=== PATIENT | male | born 1995 | race Caucasian/White ===

== ENCOUNTER 2016-05-27 10:37 | Emergency (ER) | payer BC ==
[2016-05-27 10:54] VITALS: BP 146/79
[2016-05-27] MEDS ORDERED: Albuterol 2.5 MG/3 ML NEB.SOL* (0.083%) INH ONE (11:00)
--- NOTE | 2016-05-27 11:05 | UC ---
Asthma HPI - HPI Summary HPI Summary: patient has history of asthma, ran out of his inhaler, has a chest cold and is SOB and has increased cough the past few days. no fever, no sore throat, no sinus congestion. - History of Current Complaint Chief Complaint: UCGeneralIllness Stated Complaint: COUGH,CONGEST,ASTHMA Time Seen by Provider: 05/27/16 10:55 Hx Obtained From: Patient Onset/Duration: Sudden Onset, Lasting Days Timing: Constant Initial Severity: Mild Current Severity: Moderate Pain Intensity: 3 Pain Scale Used: 0-10 Numeric Location/Character: Cough (Nonproductive) Aggravating: Exertion Alleviating: Nothing Associated Signs and Symptoms: Positive: URI, Shortness of Breath - Risk Factors Status Asthmaticus Risk Factors: Negative - Allergy/Home Medications Allergies/Adverse Reactions: Allergies Allergy/AdvReac Type Severity Reaction Status Date / Time Penicillins Allergy Rash Verified 05/21/15 14:13 Home Medications: Home Medications Ibuprofen TAB* [Advil TAB*] 1 tab PO PRN 05/27/16 [History] Pseudoephedrine-Dm [Cough Syrup D 60-30 mg/15Ml] 05/27/16 [History Confirmed ] PMH/Surg Hx/FS Hx/Imm Hx Previously Healthy: Yes Endocrine History Of: Denies: Diabetes Cardiovascular History Of: Denies: Hypertension Respiratory History Of: Reports: Asthma GI/ History Of: Denies: Urosepsis Psychological History Of: Denies: Post Traumatic Stress Disorder Cancer History Of: Denies: Lung Cancer Other History Of: Negative For: HIV - Surgical History Surgical History: Yes Surgery Procedure, Year, and Place: T&A - Family History Known Family History: Positive: Hypertension, Diabetes - Social History Alcohol Use: Rare Substance Use Type: None Smoking Status (MU): Never Smoked Tobacco Type: Cigarettes Length of Time of Smoking/Using Tobacco: 1-2 YRS Have You Smoked in the Last Year: Yes Review of Systems Constitutional: Negative Skin: Negative Eyes: Negative ENT: Negative Respiratory: Shortness Of Breath, Cough Cardiovascular: Negative Gastrointestinal: Negative Genitourinary: Negative Motor: Negative Neurovascular: Negative Musculoskeletal: Negative Neurological: Negative Psychological: Negative All Other Systems Reviewed And Are Negative: Yes Physical Exam Triage Information Reviewed: Yes Appearance: No Pain Distress, Well-Nourished, Ill-Appearing Vital Signs: Initial Vital Signs Temp 98.0 F 01/17/17 10:51 Pulse 66 05/27/16 10:51 Resp 16 05/27/16 10:51 BP 146/79 05/27/16 10:51 Pulse Ox 98 05/27/16 10:51 Vital Signs Reviewed: Yes Eye Exam: Normal Eyes: Positive: Conjunctiva Clear ENT Exam: Normal ENT: Positive: Hearing grossly normal, Pharynx normal, TMs normal Dental Exam: Normal Neck exam: Normal Neck: Positive: Supple, Nontender, No Lymphadenopathy Respiratory Exam: Normal Respiratory: Positive: Chest non-tender, Lungs clear, Normal breath sounds Cardiovascular Exam: Normal Cardiovascular: Positive: RRR, No Murmur, Pulses Normal Abdominal Exam: Normal Abdomen Description: Positive: Nontender, No Organomegaly, Soft Bowel Sounds: Positive: Present Musculoskeletal Exam: Normal Musculoskeletal: Positive: Strength Intact, ROM Intact, No Edema Neurological Exam: Normal Neurological: Positive: Alert, Muscle Tone Normal Psychological Exam: Normal Skin Exam: Normal Asthma Course/Dx - Course Course Of Treatment: hx obtained, exam performed, albuterol neb administered with improved respiration, prednisone and ventolin and albuterol neb prescribed , educated on triggers and avoidance of them. prescription for neb machine given - Differential Dx/Diagnosis Differential Diagnosis/HQI/PQRI: Acute Asthma, Bronchitis, Croup, Pneumonia, Reactive Airway Disease, SARS Provider Diagnoses: SOB, cough. Viral URI. hx of asthma Discharge - Discharge Plan Condition: Stable Disposition: HOME Prescriptions: Albuterol HFA INHALER* [Ventolin HFA Inhaler*] 1 - 2 puff INH Q4H PRN #1 mdi PRN Reason: Cough predniSONE TAB* [Deltasone TAB*] 40 mg PO DAILY #10 tab Additional Instructions: Take the medication as prescribed. I have included a script for the nebulizer machine. Follow up if symptoms return or are not well controlled. Keep increasing your fluid intake and get plenty of rest to let your body recover from the cold.
== END 2016-05-27 11:48 | disposition home or self-care (01) ==
LOC: UCEAST 10:37
DX: J06.9 Acute upper respiratory infection, unspecified (principal); B97.89 Other viral agents as the cause of diseases classified elsewhere; R05 Cough; Z72.0 Tobacco use; Z88.0 Allergy status to penicillin
CPT/HCPCS: 99212; G0463

== ENCOUNTER → 2016-08-29 10:37 | Emergency (ER) | payer SELFPAY ==
[~2016-08-29 10:37] MED LIST: PPD test dose* 5 TU/0.1 ML TEST (*USE PPD ORDER SET*) ONE
== END | disposition home or self-care (01) ==
LOC: UCCORT 10:37 → OHCORT 10:37
DX: Z11.1 Encounter for screening for respiratory tuberculosis (principal)

== ENCOUNTER 2019-05-05 13:34 | Emergency (ER) | payer OTHER ==
[2019-05-05 15:23] VITALS: BP 138/76
--- NOTE | 2019-05-05 15:25 | ED ---
Respiratory - HPI Summary HPI Summary: 24 yr old male with the complaint of coughing and left sided chest pain with coughing. The patient states people have pneumonia in his household. The patient has been coughing up yellow sputum. He states at times he has had some wheezing and shortness of breath. He has a history of asthma. The patient denies dizziness. - History of Current Complaint Chief Complaint: UCGeneralIllness Stated Complaint: COUGH,CONGESTION,WHEEZING Time Seen by Provider: 05/05/19 15:15 Pain Intensity: 0 - Allergy/Home Medications Allergies/Adverse Reactions: Allergies Allergy/AdvReac Type Severity Reaction Status Date / Time Penicillins Allergy Rash Verified 05/05/19 14:59 PMH/Surg Hx/FS Hx/Imm Hx Endocrine/Hematology History: Denies: Hx Diabetes Cardiovascular History: Denies: Hx Hypertension Respiratory History: Reports: Hx Asthma Denies: Hx Lung Cancer GI History: Denies: Hx Urosepsis - Surgical History Surgery Procedure, Year, and Place: T&A Infectious Disease History: No Infectious Disease History: Denies: Traveled Outside the in Last 30 Days - Family History Known Family History: Positive: Hypertension, Diabetes - Social History Alcohol Use: Rare Substance Use Type: Reports: None Smoking Status (MU): Never Smoked Tobacco Type: Cigarettes Length of Time of Smoking/Using Tobacco: 1-2 YRS Have You Smoked in the Last Year: Yes Review of Systems Constitutional: Negative Positive: Nasal Discharge Positive: Chest Pain - with coughing only Positive: Cough All Other Systems Reviewed And Are Negative: Yes Physical Exam Triage Information Reviewed: Yes Vital Signs On Initial Exam: Initial Vitals Temp Pulse Resp BP Pulse Ox 97.6 F 68 16 138/76 99 05/05/19 14:53 05/05/19 14:53 05/05/19 14:53 05/05/19 14:53 05/05/19 14:53 Vital Signs Reviewed: Yes Appearance: Positive: Well-Appearing, No Pain Distress Skin: Positive: Warm, Skin Color Reflects Adequate Perfusion Head/Face: Positive: Normal Head/Face Inspection Eyes: Positive: EOMI ENT: Positive: Normal ENT inspection Neck: Positive: Nontender Respiratory/Lung Sounds: Positive: Clear to Auscultation, Breath Sounds Present. Negative: Stridor, Wheezes Cardiovascular: Positive: RRR. Negative: Murmur Abdomen Description: Negative: Distended Musculoskeletal: Positive: Strength/ROM Intact Neurological: Positive: Sensory/Motor Intact, Alert, Oriented to Person Place, Time, CN Intact II-III, Normal Gait, Speech Normal Psychiatric: Positive: Normal Diagnostics - Vital Signs Vital Signs Temp Pulse Resp BP Pulse Ox 05/05/19 14:53 97.6 F 68 16 138/76 99 - Laboratory Lab Statement: Any lab studies that have been ordered have been reviewed, and results considered in the medical decision making process. - Radiology PA/LAT chest Radiology Interpretation Completed By: Radiologist - nad Disposition - Course Course Of Treatment: 24 yr old with neg chest xray. Will cover with zithromax for atypical organism, mycoplasma. Will put on prednisone and albuterol given history of asthma. - Diagnoses Provider Diagnoses: Asthma, Atypical pneumonia Discharge ED - Sign-Out/Discharge Documenting (check all that apply): Patient Departure All imaging exams completed and their final reports reviewed: Yes - Discharge Plan Condition: Good Disposition: HOME Prescriptions: Albuterol HFA INHALER* [Ventolin HFA Inhaler*] 1 - 2 puff INH Q6H PRN #1 mdi PRN Reason: Cough Azithromycin TAB* [Zithromax TAB (Z-MARIE) 250 mg #6 tabs] 2 tab PO .TODAY, THEN 1 DAILY #1 marie predniSONE TAB* [Deltasone 20 MG TAB*] 40 mg PO DAILY #10 tab Patient Education Materials: Pneumonia (ED), Wheezing (ED) Referrals: No Primary Care Phys,NOPCP [Primary Care Provider] - [facility] [place] [facility] REFERRAL [Outside] - 2 Days - Billing Disposition and Condition Condition: GOOD Disposition: Home
== END 2019-05-05 16:03 | disposition home or self-care (01) ==
LOC: UCCORT 13:34
DX: J18.9 Pneumonia, unspecified organism (principal); J45.909 Unspecified asthma, uncomplicated; Z88.0 Allergy status to penicillin
CPT/HCPCS: 71046; 99212; G0463

== ENCOUNTER 2019-06-25 12:10 | Emergency (ER) | payer OTHER ==
[2019-06-25 12:54] VITALS: BP 113/92
[2019-06-25] MEDS ORDERED: Tetan/Diph/Pertus SYR(Tdap)* 0.5 ML SYR(BOOSTRIX) use SYR contains LATEX IM ONE (13:00)
--- NOTE | 2019-06-25 13:09 | UC ---
Skin Complaint HPI - HPI Summary HPI Summary: cut finger x 1 hr ago laceration of the left 2nd finger with a utility knife, 5 out of 10 in severity , has been bleeding, worse by touch , better with pressure to stop the bleeding - History of Current Complaint Chief Complaint: UCLaceration Time Seen by Provider: 06/25/19 12:57 Stated Complaint: LACERATION LEFT INDEX FINGER Hx Obtained From: Patient Onset/Duration: Sudden Onset, Lasting Hours - 1, Still Present Timing: Constant Onset Severity: Moderate Current Severity: Moderate Pain Intensity: 7 Location: Hand (Left) - index finger Character: Pain Aggravating Factor(s): Touch Alleviating Factor(s): Other - pressure Associated Signs & Symptoms: Positive: Tenderness Related History: Trauma - cut with utility knife - Allergy/Home Medications Allergies/Adverse Reactions: Allergies Allergy/AdvReac Type Severity Reaction Status Date / Time Penicillins Allergy Rash Verified 06/25/19 12:46 Home Medications: Home Medications NK [No Home Medications Reported] 06/25/19 [History Confirmed 06/25/19] PMH/Surg Hx/FS Hx/Imm Hx Previously Healthy: Yes Other History Of: Negative For: HIV - Surgical History Surgical History: Yes Surgery Procedure, Year, and Place: T&A - Family History Known Family History: Positive: Hypertension, Diabetes - Social History Alcohol Use: Rare Substance Use Type: None Smoking Status (MU): Light Every Day Tobacco Smoker Type: Smokeless Tobacco Amount Used/How Often: 1 pinch chew on work days only Length of Time of Smoking/Using Tobacco: 1-2 YRS Have You Smoked in the Last Year: Yes - Immunization History Most Recent Tetanus Shot: Unknown Review of Systems All Other Systems Reviewed And Are Negative: Yes Is Patient Immunocompromised?: No Physical Exam Triage Information Reviewed: Yes Appearance: Well-Appearing, No Pain Distress, Well-Nourished Vital Signs: Initial Vital Signs Temp 98.7 F 06/25/19 12:45 Pulse 92 06/25/19 12:45 Resp 18 06/25/19 12:45 BP 113/92 06/25/19 12:45 Pulse Ox 99 06/25/19 12:45 Vital Signs Reviewed: Yes Eye Exam: Normal Eyes: Positive: Conjunctiva Clear ENT: Positive: Normal ENT inspection, Hearing grossly normal, Pharynx normal Neck: Positive: Supple, Nontender, No Lymphadenopathy Respiratory: Positive: Chest non-tender, Lungs clear, Normal breath sounds Cardiovascular: Positive: RRR, No Murmur, Pulses Normal Skin: Positive: Other - laceration left index finger , .5 cm , not very deep, minimal bleeding glue was used to repair the laceration Laceration Repair - Laceration Repair 1 Description: Linear Laceration Size After Repair: Length (cm) - .5 Modified For Repair: No Cleansing Completed Via Routine Prep: Yes Irrigation With Pressure Irrigation Device: Yes Closure Material: Skin Adhesive Course/Dx - Diagnoses Provider Diagnosis: Laceration of finger Discharge ED - Sign-Out/Discharge Documenting (check all that apply): Patient Departure All imaging exams completed and their final reports reviewed: No Studies - Discharge Plan Condition: Stable Disposition: HOME Patient Education Materials: Finger Laceration (ED), Skin Adhesive Care (ED) Referrals: No Primary Care Phys,NOPCP [Primary Care Provider] - If Needed - Billing Disposition and Condition Condition: STABLE Disposition: Home
== END 2019-06-25 13:10 | disposition home or self-care (01) ==
LOC: UCCORT 12:10
DX: S61.211A Laceration without foreign body of left index finger without damage to nail, initial encounter (principal); F17.290 Nicotine dependence, other tobacco product, uncomplicated; Z88.0 Allergy status to penicillin; W26.0XXA Contact with knife, initial encounter; Y92.9 Unspecified place or not applicable
CPT/HCPCS: 12001; 90471; 90715; 99211; G0463